=== PATIENT | female | born 1930 | race Caucasian/White ===

== ENCOUNTER → 2016-05-01 | Outpatient (REF) ==
[~2016-05-01] MED LIST: /ONDA4TA PO; /RANI15TA PO; ACET50TA PO; ACET50TA PR; ASPI325T PO; ASPI325T5 PO; ASPI81TA85 PO; ATEN25TA PO; BISAC5TA PO; CLOP75TA2 PO; DIAZIDE PO; DIOV320T PO; DIOV80TA2 PO; DIPH25CA PO; DOCU100T PO; DULC10SU9 PR; FLEEENE4 PR; HUMA100I SC; INSULANT SC; JANU100T PO; LANTUS INSULIN SC; LEVO500T PO; LIPI10TA PO; LOPR50TA PO; METF1000 PO; METF500T PO; MILK2400 PO; MILKSUS5 PO; MOM30SS PO; MSIR PO; MULTTAB4 PO; MYLASSUD PO; OFLOSO AD; POTA20PO4 PO; PRED10TA2 PO; PRED20TA PO; PRIL40CA PO; SENN8.6T76 PO; SIME80TA PO; TYLE325T5 PO; TYLENOL ES PO; ULTR50TA PO; VALT1TAB PO; VICO5TAB16 PO; VITAD1000T PO; XARE15TA PO; ZOCO20TA PO; ZOFR4SOL PO; ZOLO50TA PO; ZOVI5CRE5 EX; [UNRECOGNIZED DRUG - CODE] PO; [UNRECOGNIZED DRUG - OTHER] PO
== END ==
PROVIDERS: ATTEND Internal Medicine
DX: M13.88 Other specified arthritis, other site (principal)

== ENCOUNTER → 2016-05-29 | Outpatient (REF) ==
[2016-05-29 10:58] LABS: MEAN CORPUSCULAR HEMOGLOBIN 31.2 pg (27.0-33.0); MEAN CORPUSCULAR HGB CONC 31.8 g/dl (32.0-36.5); MEAN CORPUSCULAR VOLUME 98.2 fl (80.0-96.0); RED CELL DISTRIBUTION WIDTH 13.1 % (11.5-14.5); WHITE BLOOD COUNT 6.1 K/mm3 (4.0-10.0)
[2016-05-29 11:40] LABS: ALBUMIN 3.4 GM/DL (3.2-5.2); ALBUMIN/GLOBULIN RATIO 1.03 (1.00-1.93); BILIRUBIN,TOTAL 0.4 MG/DL (0.2-1.0); CALCIUM LEVEL 8.7 MG/DL (8.8-10.2); CREATININE FOR GFR 1.22 MG/DL (0.55-1.02); GLOMERULAR FILTRATION RATE 44.4 (>32); POTASSIUM SERUM 3.5 MEQ/L (3.5-5.1); TOTAL PROTEIN 6.7 GM/DL (6.4-8.2)
--- NOTE | 2016-05-29 16:18 | REP ---
Chest a single AP view: Comparison is 2013. 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 The visualized lung walls are clear. There are no focal infiltrates or effusions. Cardiac size is normal. The [place], mediastinum, and bony thorax are unremarkable for positioning. Impression: There are no acute cardiopulmonary findings. Signed by Neri Zepeda MD 05/29/2016 04:09 P
== END ==
PROVIDERS: ATTEND Internal Medicine
DX: D62 Acute posthemorrhagic anemia (principal)

== ENCOUNTER → 2016-07-04 | Outpatient (REF) | PROVIDERS: ATTEND Internal Medicine | DX: M19.90 Unspecified osteoarthritis, unspecified site (principal) ==

== ENCOUNTER → 2016-07-31 | Outpatient (REF) | PROVIDERS: ATTEND Internal Medicine | DX: M19.90 Unspecified osteoarthritis, unspecified site (principal) ==

== ENCOUNTER → 2016-08-29 | Outpatient (REF) | PROVIDERS: ATTEND Internal Medicine | DX: M13.849 Other specified arthritis, unspecified hand (principal) ==

== ENCOUNTER → 2016-10-02 | Outpatient (REF) | PROVIDERS: ATTEND Internal Medicine | DX: R60.0 Localized edema (principal) ==

== ENCOUNTER → 2016-10-04 | Outpatient (REF) ==
[2016-10-04 18:20] LABS: MEAN CORPUSCULAR HEMOGLOBIN 31.8 pg (27.0-33.0); MEAN CORPUSCULAR HGB CONC 32.7 g/dl (32.0-36.5); MEAN CORPUSCULAR VOLUME 97.3 fl (80.0-96.0); RED CELL DISTRIBUTION WIDTH 13.2 % (11.5-14.5)
[2016-10-04 18:48] LABS: CALCIUM LEVEL 9.7 MG/DL (8.8-10.2); CREATININE FOR GFR 1.05 MG/DL (0.55-1.02); GLOMERULAR FILTRATION RATE 52.7 (>32); POTASSIUM SERUM 4.3 MEQ/L (3.5-5.1)
== END ==
PROVIDERS: ATTEND Internal Medicine
DX: R11.10 Vomiting, unspecified (principal); R47.02 Dysphasia

== ENCOUNTER → 2016-10-30 | Outpatient (REF) | PROVIDERS: ATTEND Internal Medicine | DX: M19.90 Unspecified osteoarthritis, unspecified site (principal) ==

== ENCOUNTER → 2016-11-28 | Outpatient (REF) ==
[2016-11-28 11:29] LABS: MEAN CORPUSCULAR HGB CONC 32.6 g/dl (32.0-36.5); RED CELL DISTRIBUTION WIDTH 13.3 % (11.5-14.5); WHITE BLOOD COUNT 8.6 K/mm3 (4.0-10.0)
[2016-11-28 12:13] LABS: ALBUMIN 3.3 GM/DL (3.2-5.2); ALBUMIN/GLOBULIN RATIO 0.85 (1.00-1.93); BILIRUBIN,TOTAL 0.3 MG/DL (0.2-1.0); CALCIUM LEVEL 9.6 MG/DL (8.8-10.2); CREATININE FOR GFR 1.17 MG/DL (0.55-1.02); GLOMERULAR FILTRATION RATE 46.5 (>32); POTASSIUM SERUM 3.8 MEQ/L (3.5-5.1); TOTAL PROTEIN 7.2 GM/DL (6.4-8.2)
== END ==
PROVIDERS: ATTEND Internal Medicine
DX: D64.9 Anemia, unspecified (principal)

== ENCOUNTER → 2017-01-01 | Outpatient (REF) | PROVIDERS: ATTEND Internal Medicine | DX: M19.90 Unspecified osteoarthritis, unspecified site (principal) ==

== ENCOUNTER → 2017-01-28 | Outpatient (REF) | payer MEDICARE | PROVIDERS: ATTEND Internal Medicine | DX: R11.2 Nausea with vomiting, unspecified (principal) ==

== ENCOUNTER → 2017-01-29 | Outpatient (REF) ==
[2017-01-29 12:59] LABS: MEAN CORPUSCULAR HEMOGLOBIN 30.6 pg (27.0-33.0); MEAN CORPUSCULAR VOLUME 95.8 fl (80.0-96.0); RED CELL DISTRIBUTION WIDTH 14.3 % (11.5-14.5); WHITE BLOOD COUNT 10.9 10^3/uL (4.0-10.0)
[2017-01-29 14:21] LABS: CALCIUM LEVEL 8.6 MG/DL (8.8-10.2); CREATININE FOR GFR 1.36 MG/DL (0.55-1.02); GLOMERULAR FILTRATION RATE 39.1 (>32); POTASSIUM SERUM 3.5 MEQ/L (3.5-5.1)
== END ==
PROVIDERS: ATTEND Internal Medicine
DX: M19.90 Unspecified osteoarthritis, unspecified site (principal)

== ENCOUNTER → 2017-02-01 | Outpatient (REF) | payer MEDICARE ==
[2017-02-01 14:55] LABS: ANION GAP 9 MEQ/L (8-16); BLOOD UREA NITROGEN 13 MG/DL (7-18); CALCIUM LEVEL 8.7 MG/DL (8.8-10.2); CARBON DIOXIDE LEVEL 26 MEQ/L (21-32); CHLORIDE LEVEL 106 MEQ/L (98-107); GLOMERULAR FILTRATION RATE > 60.0 (>32); GLUCOSE, FASTING 171 MG/DL (83-110); POTASSIUM SERUM 3.8 MEQ/L (3.5-5.1); SODIUM LEVEL 141 MEQ/L (136-145)
== END ==
PROVIDERS: ATTEND Internal Medicine
DX: K52.9 Noninfective gastroenteritis and colitis, unspecified (principal)

== ENCOUNTER → 2017-03-05 | Outpatient (REF) | payer MEDICARE | PROVIDERS: ATTEND Internal Medicine | DX: M19.90 Unspecified osteoarthritis, unspecified site (principal) ==

== ENCOUNTER → 2017-04-02 | Outpatient (REF) | payer MEDICARE | PROVIDERS: ATTEND Internal Medicine | DX: M19.90 Unspecified osteoarthritis, unspecified site (principal) ==

== ENCOUNTER → 2017-04-30 | Outpatient (REF) | payer MEDICARE ==
[2017-04-30 12:25] LABS: ERYTHROCYTE SEDIMENTATION RATE 52 mm/hr (0-42)
== END ==
DX: M19.90 Unspecified osteoarthritis, unspecified site (principal)
CPT/HCPCS: 85652

== ENCOUNTER → 2017-06-04 | Outpatient (REF) | payer MEDICARE ==
[2017-06-04 11:05] LABS: HEMATOCRIT 40.2 % (36.0-47.0); MEAN CORPUSCULAR HEMOGLOBIN 30.8 pg (27.0-33.0); MEAN CORPUSCULAR HGB CONC 32.3 g/dl (32.0-36.5); MEAN CORPUSCULAR VOLUME 95.3 fl (80.0-96.0); PLATELET COUNT, AUTOMATED 260 10^3/uL (150-450); RED BLOOD COUNT 4.22 10^6/uL (4.00-5.40); RED CELL DISTRIBUTION WIDTH 13.3 % (11.5-14.5); WHITE BLOOD COUNT 6.8 10^3/uL (4.0-10.0)
[2017-06-04 11:14] LABS: ESTIMATED AVERAGE GLUCOSE 166 MG/DL (60-110); HEMOGLOBIN A1c 7.4 %
[2017-06-04 11:40] LABS: ALBUMIN 3.5 GM/DL (3.2-5.2); ALBUMIN/GLOBULIN RATIO 0.97 (1.00-1.93); ALKALINE PHOSPHATASE 114 U/L (45-117); ALT/SGPT 21 U/L (12-78); ANION GAP 12 MEQ/L (8-16); AST/SGOT 19 U/L (7-37); BILIRUBIN,TOTAL 0.2 MG/DL (0.2-1.0); BLOOD UREA NITROGEN 14 MG/DL (7-18); CALCIUM LEVEL 9.1 MG/DL (8.8-10.2); CARBON DIOXIDE LEVEL 30 MEQ/L (21-32); CHLORIDE LEVEL 98 MEQ/L (98-107); CREATININE FOR GFR 1.05 MG/DL (0.55-1.30); GLOMERULAR FILTRATION RATE 52.7 (>32); GLUCOSE, FASTING 275 MG/DL (70-100); POTASSIUM SERUM 3.7 MEQ/L (3.5-5.1); SODIUM LEVEL 140 MEQ/L (136-145); TOTAL PROTEIN 7.1 GM/DL (6.4-8.2)
[2017-06-04 11:52] LABS: ERYTHROCYTE SEDIMENTATION RATE 43 mm/hr (0-42)
== END ==
DX: D64.9 Anemia, unspecified (principal); E11.9 Type 2 diabetes mellitus without complications
CPT/HCPCS: 80053

== ENCOUNTER → 2017-07-05 | Outpatient (REF) | payer MEDICARE ==
[2017-07-05 12:34] LABS: ERYTHROCYTE SEDIMENTATION RATE 31 mm/hr (0-42)
== END ==
DX: M06.4 Inflammatory polyarthropathy (principal)
CPT/HCPCS: 85652

== ENCOUNTER → 2017-08-02 | Outpatient (REF) | payer MEDICARE ==
[2017-08-02 11:00] LABS: ERYTHROCYTE SEDIMENTATION RATE 26 mm/hr (0-42)
== END ==
DX: M13.80 Other specified arthritis, unspecified site (principal)
CPT/HCPCS: 36415

== ENCOUNTER 2017-08-27 06:00 | Outpatient (REF) | payer MEDICARE ==
[2017-08-30 19:11] LABS: ERYTHROCYTE SEDIMENTATION RATE 40 mm/hr (0-42)
== END 2017-08-30 ==
DX: M19.90 Unspecified osteoarthritis, unspecified site (principal)
CPT/HCPCS: 85652

== ENCOUNTER → 2017-10-01 | Outpatient (REF) | payer MEDICARE | DX: M13.88 Other specified arthritis, other site (principal) ==

== ENCOUNTER → 2017-10-29 | Outpatient (REF) | payer MEDICARE ==
[2017-10-29 12:39] LABS: ERYTHROCYTE SEDIMENTATION RATE 46 mm/hr (0-42)
== END ==
DX: M00.80 Arthritis due to other bacteria, unspecified joint (principal)
CPT/HCPCS: 85652

== ENCOUNTER → 2017-12-03 | Outpatient (REF) | payer MEDICARE ==
[2017-12-03 10:08] LABS: HEMATOCRIT 39.5 % (36.0-47.0); HEMOGLOBIN 12.9 g/dl (12.0-15.5); MEAN CORPUSCULAR HEMOGLOBIN 31.9 pg (27.0-33.0); MEAN CORPUSCULAR HGB CONC 32.7 g/dl (32.0-36.5); MEAN CORPUSCULAR VOLUME 97.5 fl (80.0-96.0); PLATELET COUNT, AUTOMATED 247 10^3/uL (150-450); RED BLOOD COUNT 4.05 10^6/uL (4.00-5.40); WHITE BLOOD COUNT 7.4 10^3/uL (4.0-10.0)
[2017-12-03 10:38] LABS: ALBUMIN 3.3 GM/DL (3.2-5.2); ALBUMIN/GLOBULIN RATIO 0.92 (1.00-1.93); ALKALINE PHOSPHATASE 88 U/L (45-117); ALT/SGPT 21 U/L (12-78); ANION GAP 8 MEQ/L (8-16); AST/SGOT 24 U/L (7-37); BILIRUBIN,TOTAL 0.2 MG/DL (0.2-1.0); BLOOD UREA NITROGEN 15 MG/DL (7-18); CARBON DIOXIDE LEVEL 32 MEQ/L (21-32); CHLORIDE LEVEL 101 MEQ/L (98-107); ERYTHROCYTE SEDIMENTATION RATE 48 mm/hr (0-42); GLOMERULAR FILTRATION RATE 49.8 (>32); GLUCOSE, FASTING 206 MG/DL (70-100); POTASSIUM SERUM 4.3 MEQ/L (3.5-5.1); SODIUM LEVEL 141 MEQ/L (136-145); TOTAL PROTEIN 6.9 GM/DL (6.4-8.2)
[2017-12-03 10:49] LABS: ESTIMATED AVERAGE GLUCOSE 148 MG/DL (60-110); HEMOGLOBIN A1c 6.8 %
== END ==
DX: D62 Acute posthemorrhagic anemia (principal); E11.9 Type 2 diabetes mellitus without complications
CPT/HCPCS: 80053

== ENCOUNTER → 2018-01-01 | Outpatient (REF) | payer MEDICARE ==
[2018-01-01 10:04] LABS: ERYTHROCYTE SEDIMENTATION RATE 52 mm/hr (0-42)
== END ==
DX: M00.80 Arthritis due to other bacteria, unspecified joint (principal)
CPT/HCPCS: 85652

== ENCOUNTER → 2018-01-28 | Outpatient (REF) | payer MEDICARE ==
[2018-01-28 10:21] LABS: ERYTHROCYTE SEDIMENTATION RATE 35 mm/hr (0-42)
== END ==
DX: M00.80 Arthritis due to other bacteria, unspecified joint (principal)
CPT/HCPCS: 36415

== ENCOUNTER → 2018-03-04 | Outpatient (REF) | payer MEDICARE ==
[2018-03-04 11:13] LABS: ERYTHROCYTE SEDIMENTATION RATE 65 mm/hr (0-42)
== END ==
DX: M00.80 Arthritis due to other bacteria, unspecified joint (principal)
CPT/HCPCS: 36415

== ENCOUNTER → 2018-03-14 | Outpatient (REF) | payer MEDICARE ==
[2018-03-14 16:33] LABS: APPEARANCE, URINE CLEAR (CLEAR); BACTERIA, URINE AUTO NEGATIVE (NEGATIVE); BILIRUBIN, URINE AUTO NEGATIVE (NEGATIVE); BLOOD, URINE BLOOD NEGATIVE (NEGATIVE); COLOR, URINE YELLOW (YELLOW); GLUCOSE, URINE (UA) AUTO 3+ mg/dL (NEGATIVE); KETONE, URINE AUTO 1+ mg/dL (NEGATIVE); LEUKOCYTE ESTERASE, URINE AUTO NEGATIVE (NEGATIVE); NITRITE, URINE AUTO NEGATIVE (NEGATIVE); PROTEIN, URINE AUTO 2+ mg/dL (NEGATIVE); RBC, URINE AUTO 2 /HPF (0-3); SPECIFIC GRAVITY URINE AUTO 1.013 (1.002-1.035); SQUAMOUS EPITHELIAL CELL UR AU 0 /HPF (0-6); UROBILINOGEN, URINE AUTO 0.2 mg/dL (0.0-2.0); WBC, URINE AUTO 0 /HPF (0-3)
== END ==
DX: R11.0 Nausea (principal); R11.10 Vomiting, unspecified
CPT/HCPCS: 81001

== ENCOUNTER → 2018-03-14 | Outpatient (REF) | payer MEDICARE ==
[2018-03-14 09:01] LABS: HEMATOCRIT 46.1 % (36.0-47.0); HEMOGLOBIN 15.5 g/dl (12.0-15.5); MEAN CORPUSCULAR HEMOGLOBIN 31.3 pg (27.0-33.0); MEAN CORPUSCULAR HGB CONC 33.6 g/dl (32.0-36.5); MEAN CORPUSCULAR VOLUME 93.1 fl (80.0-96.0); PLATELET COUNT, AUTOMATED 321 10^3/uL (150-450); RED BLOOD COUNT 4.95 10^6/uL (4.00-5.40); WHITE BLOOD COUNT 14.7 10^3/uL (4.0-10.0)
[2018-03-14 09:27] LABS: ANION GAP 12 MEQ/L (8-16); BLOOD UREA NITROGEN 16 MG/DL (7-18); CALCIUM LEVEL 9.4 MG/DL (8.8-10.2); CARBON DIOXIDE LEVEL 26 MEQ/L (21-32); CHLORIDE LEVEL 96 MEQ/L (98-107); CREATININE FOR GFR 1.18 MG/DL (0.55-1.30); GLOMERULAR FILTRATION RATE 45.9 (>32); GLUCOSE, FASTING 326 MG/DL (70-100); POTASSIUM SERUM 4.3 MEQ/L (3.5-5.1); SODIUM LEVEL 134 MEQ/L (136-145)
== END ==
DX: R11.10 Vomiting, unspecified (principal); R11.2 Nausea with vomiting, unspecified (principal); B37.3 Candidiasis of vulva and vagina; Z79.899 Other long term (current) drug therapy
CPT/HCPCS: 80048

== ENCOUNTER → 2018-03-15 | Outpatient (REF) | payer MEDICARE ==
[2018-03-15 14:20] LABS: HEMATOCRIT 43.1 % (36.0-47.0); HEMOGLOBIN 13.7 g/dl (12.0-15.5); MEAN CORPUSCULAR HEMOGLOBIN 30.8 pg (27.0-33.0); MEAN CORPUSCULAR HGB CONC 31.8 g/dl (32.0-36.5); MEAN CORPUSCULAR VOLUME 96.9 fl (80.0-96.0); PLATELET COUNT, AUTOMATED 322 10^3/uL (150-450); RED BLOOD COUNT 4.45 10^6/uL (4.00-5.40); RED CELL DISTRIBUTION WIDTH 13.8 % (11.5-14.5); WHITE BLOOD COUNT 20.6 10^3/uL (4.0-10.0)
== END ==
DX: R11.0 Nausea (principal)
CPT/HCPCS: 85027

== ENCOUNTER → 2018-03-16 | Outpatient (CLI) | payer MEDICARE ==
[2018-03-16 10:10] LABS: HEMATOCRIT 39.8 % (36.0-47.0); HEMOGLOBIN 12.9 g/dl (12.0-15.5); MEAN CORPUSCULAR HEMOGLOBIN 31.2 pg (27.0-33.0); MEAN CORPUSCULAR HGB CONC 32.4 g/dl (32.0-36.5); MEAN CORPUSCULAR VOLUME 96.4 fl (80.0-96.0); PLATELET COUNT, AUTOMATED 286 10^3/uL (150-450); RED BLOOD COUNT 4.13 10^6/uL (4.00-5.40); RED CELL DISTRIBUTION WIDTH 14.3 % (11.5-14.5); WHITE BLOOD COUNT 15.4 10^3/uL (4.0-10.0)
[2018-03-16 10:17] LABS: REASON FOR REVIEW OTHER; SLIDE REVIEW Report; SOURCE PERIPHERAL SMEAR
== END ==
LOC: M LAB 09:48
DX: D72.829 Elevated white blood cell count, unspecified (principal)
CPT/HCPCS: 85027

== ENCOUNTER → 2018-03-17 | Outpatient (REF) | payer MEDICARE ==
[2018-03-17 09:50] LABS: BASO % 0.4 % (0.0-1.0); EOS # 0.9 10^3/uL (0.0-0.50); EOS % 9.6 % (0.0-3.0); HEMATOCRIT 35.6 % (36.0-47.0); HEMOGLOBIN 11.3 g/dl (12.0-15.5); IMMATURE GRANULOCYTE % 0.2 % (0-3.0); LYMPH # 1.7 10^3/uL (1.5-4.5); LYMPH % 18.6 % (24.0-44.0); MEAN CORPUSCULAR HEMOGLOBIN 31.4 pg (27.0-33.0); MEAN CORPUSCULAR HGB CONC 31.7 g/dl (32.0-36.5); MEAN CORPUSCULAR VOLUME 98.9 fl (80.0-96.0); MONO # 0.8 10^3/uL (0.0-0.8); MONO % 8.5 % (0.0-5.0); NEUTROPHILS # 5.8 10^3/uL (1.8-7.7); NEUTROPHILS % 62.7 % (36.0-66.0); PLATELET COUNT, AUTOMATED 293 10^3/uL (150-450); RED CELL DISTRIBUTION WIDTH 14.4 % (11.5-14.5); WHITE BLOOD COUNT 9.2 10^3/uL (4.0-10.0)
== END ==
DX: R11.10 Vomiting, unspecified (principal)
CPT/HCPCS: 85025

== ENCOUNTER → 2018-04-01 | Outpatient (REF) | payer MEDICARE ==
[2018-04-01 11:02] LABS: ERYTHROCYTE SEDIMENTATION RATE 38 mm/hr (0-42)
== END ==
DX: M00.80 Arthritis due to other bacteria, unspecified joint (principal)
CPT/HCPCS: 36415